=== PATIENT | female | born 1980 | race Two or more races ===

== ENCOUNTER 2017-08-19 22:36 | Emergency (ER) | payer OTHER ==
[~2017-08-19] VITALS: Ht 170.2 cm; Wt 70.3 kg
--- NOTE | 2017-08-19 22:36 | NUR ---
PT BB FRIEND IN WHEELCHAIR C/O LEFT KNEE AND LEFT ANKLE PAIN D/T CLOSING CAR DOOR ON LEG WITH 10/10 SHARP PAIN. VSS NAD. A/OX4 ABLE TO MAKE NEEDS KNOWN. WILL CONTINUE TO MONITOR FOR ANY CHANGES DURING THE SHIFT.
--- NOTE | 2017-08-19 22:37 | NUR ---
ER AT BEDSIDE FOR EVAL
[2017-08-19] MEDS ORDERED: HYDROCODONE/APAP 5/325MG 1 EACH TABLET ONE (23:43)
[2017-08-19] MEDS ORDERED: ONDANSETRON 4 MG TAB.RAPDIS ONE (23:44)
[2017-08-19] MEDS ORDERED: LORAZEPAM INJ 2 MG/ML VIAL ONE (23:46)
--- NOTE | 2017-08-19 23:51 | NUR ---
RADIOLOGY AT BEDSIDE FOR XR
[2017-08-20] MEDS ORDERED: LORAZEPAM INJ 2 MG/ML VIAL IM ONE
[2017-08-20] MEDS ORDERED: ONDANSETRON 4 MG TAB.RAPDIS PO ONE
[2017-08-20] MEDS ORDERED: HYDROCODONE/APAP 5/325MG 1 EACH TABLET PO ONE
[2017-08-20 01:13] VITALS: BP 126/79
== END 2017-08-20 01:14 | disposition home or self-care (01) ==
LOC: ER 22:39
DX: M79.672 Pain in left foot (principal); M79.662 Pain in left lower leg; D64.9 Anemia, unspecified; M04.1 Periodic fever syndromes; L93.0 Discoid lupus erythematosus; F17.200 Nicotine dependence, unspecified, uncomplicated; W23.0XXA Caught, crushed, jammed, or pinched between moving objects, initial encounter; Y93.89 Activity, other specified; Y92.89 Other specified places as the place of occurrence of the external cause; Y99.8 Other external cause status
CPT/HCPCS: 73590-TC; 73630-TC; A4606; J2060; Q0162; Z7610

== ENCOUNTER 2018-10-24 13:35 | Emergency (ER) | payer OTHER ==
[~2018-10-24] VITALS: Ht 160 cm; Wt 56.7 kg
--- NOTE | 2018-10-24 13:48 | NUR ---
"RUQ ABDOMINAL PAIN W/ N/V/D X 5 DAYS" PT AAOX4, -SOB, PT ON MONITOR, VSS, PENDING MD KWOK
[2018-10-24] MEDS ORDERED: MORPHINE SULFATE INJ 4 MG/ML DISP.SYRIN ONE (14:17)
[2018-10-24] MEDS ORDERED: ONDANSETRON HCL/PF 4 MG/2 ML VIAL ONE (14:17)
[2018-10-24 14:19] LABS: BASOPHILS # (AUTO) 0.1 /CMM (0.0-0.2); BASOPHILS % (AUTO) 0.8 % (0.0-2.0); EOSINOPHILS % (AUTO) 1.9 % (0.0-6.0); HEMATOCRIT 34 % (33-45); HEMOGLOBIN 10.8 g/dL (11.5-14.8); LYMPHOCYTES # (AUTO) 1.7 /CMM (0.8-4.8); LYMPHOCYTES % (AUTO) 20.2 % (20.0-44.0); MEAN CORPUSCULAR HGB CONC 32 g/dl (31.0-36.0); MEAN CORPUSCULAR VOLUME 74 fL (82-100); MONOCYTES # (AUTO) 0.6 /CMM (0.1-1.30); MONOCYTES % (AUTO) 7.3 % (2.0-12.0); NEUTROPHILS % (AUTO) 69.8 % (43.0-81.0); PLATELET COUNT (AUTO) 256 /CMM (150-450); RED BLOOD CELL COUNT(AUTO) 4.55 MIL/uL (4.0-5.2); WHITE BLOOD COUNT (AUTO) 8.6 K/uL (4.3-11.0)
[2018-10-24 14:25] LABS: CREATININE 0.8 mg/dL (0.6-1.3)
[2018-10-24] MEDS ORDERED: MORPHINE SULFATE INJ 2 MG/ML DISP.SYRIN IV ONE (14:30)
[2018-10-24] MEDS ORDERED: IV NS 0.9% 1,000 ML BAG IV ONE (14:30)
[2018-10-24] MEDS ORDERED: ONDANSETRON HCL/PF 4 MG/2 ML VIAL IVP ONE (14:30)
[2018-10-24 14:31] LABS: ALBUMIN 3.2 g/dL (3.4-5.0); BILIRUBIN,DIRECT 0.1 mg/dL (0.0-0.2); BILIRUBIN,TOTAL 0.2 mg/dL (0.2-1.0); TOTAL PROTEIN, SERUM 7.5 g/dL (6.4-8.2)
[2018-10-24 14:41] LABS: APPEARANCE,URINE Clear (CLEAR); BILIRUBIN,URINE Negative (NEGATIVE); BLOOD, URINE Moderate Ery/uL (NEGATIVE); COLOR,URINE Yellow (YELLOW); KETONES,URINE Negative (NEGATIVE); LEUKOCYTE ESTERASE ,URINE Negative (NEGATIVE); NITRITE, URINE Negative (NEGATIVE); PH,URINE 6.5 (5.0-8.0); PROTEIN,URINE Negative (NEGATIVE); UGLUCOSE Negative (NEGATIVE); UROBILINOGEN,URINE 0.2 EU/dL (0.2)
[2018-10-24 14:42] LABS: BACTERIA,URINE Few /HPF (None Seen); SQUAMOUS EPITHELIAL CELL,UR Few /HPF (None Seen)
--- NOTE | 2018-10-24 15:45 | NUR ---
Patient discharged to home in stable condition. Written and verbal after care instructions given. Patient verbalizes understanding of instruction. IV removed. Catheter intact and site benign. Pressure and 4x4 applied to site. No bleeding noted.
[2018-10-24 15:46] VITALS: BP 112/60
== END 2018-10-24 15:48 | disposition home or self-care (01) ==
LOC: ER 13:35
DX: R10.11 Right upper quadrant pain (principal); R11.2 Nausea with vomiting, unspecified; R19.7 Diarrhea, unspecified; D64.9 Anemia, unspecified; F17.200 Nicotine dependence, unspecified, uncomplicated
CPT/HCPCS: 36415; 76705; 80048; 80076; 81001; 83690; 84703; 85025; 96361; 96374; 96375; 99284; J2270; J2405; J7030; 81000-TC

== ENCOUNTER 2018-12-31 17:50 | Emergency (ER) | payer OTHER ==
[~2018-12-31] VITALS: Ht 165.1 cm; Wt 54.4 kg
--- NOTE | 2018-12-31 18:10 | NUR ---
PATIENT ARRIVED AT UNIT AMBULATORY. A/O X 4. WITH C/O NECK SPASM/SOB/VOMITING TODAY. PATIENT RESTING ON BED. CONNECTED TO MONITOR.
[2018-12-31] MEDS ORDERED: LORAZEPAM 1 MG TABLET PO ONE (18:30)
[2018-12-31 18:32] LABS: BASOPHILS # (AUTO) 0.1 /CMM (0.0-0.2); BASOPHILS % (AUTO) 0.4 % (0.0-2.0); EOSINOPHILS % (AUTO) 1.4 % (0.0-6.0); HEMATOCRIT 38 % (33-45); HEMOGLOBIN 12.3 g/dL (11.5-14.8); LYMPHOCYTES # (AUTO) 3.8 /CMM (0.8-4.8); LYMPHOCYTES % (AUTO) 30.6 % (20.0-44.0); MEAN CORPUSCULAR HGB CONC 32 g/dl (31.0-36.0); MEAN CORPUSCULAR VOLUME 74 fL (82-100); MONOCYTES # (AUTO) 0.8 /CMM (0.1-1.30); MONOCYTES % (AUTO) 6.1 % (2.0-12.0); NEUTROPHILS # (AUTO) 7.7 /CMM (1.8-8.9); NEUTROPHILS % (AUTO) 61.5 % (43.0-81.0); PLATELET COUNT (AUTO) 344 /CMM (150-450); RED BLOOD CELL COUNT(AUTO) 5.14 MIL/uL (4.0-5.2); WHITE BLOOD COUNT (AUTO) 12.4 K/uL (4.3-11.0)
--- NOTE | 2018-12-31 18:57 | NUR ---
PATIENT WITH POSITIVE URINE RESULT. ORDER FOR ATIVAN 1MG PO VERIFIED WITH DEMETRIUS BOX AND GAVE OK TO GIVE MEDICATION.
[2018-12-31] MEDS ORDERED: LORAZEPAM 1 MG TABLET ONE (18:59)
[2018-12-31 19:10] LABS: CALCIUM, SERUM 9.5 mg/dL (8.5-10.1); CREATININE 0.7 mg/dL (0.6-1.3); POTASSIUM 3.9 mmol/L (3.5-5.1)
--- NOTE | 2018-12-31 19:19 | NUR ---
PATIENT RESTING ON BED, TALKING ON THE PHONE WITH FAMILY MEMBER. NO ACUTE DISTRESS AT THIS TIME. REPORT GIVEN TO YIMI DARLING FOR FRANCISCO
--- NOTE | 2018-12-31 19:22 | NUR ---
TECH AT BEDSIDE FOR US.
--- NOTE | 2018-12-31 20:23 | NUR ---
Patient discharged to home in stable condition. Written and verbal after care instructions given. Patient verbalizes understanding of instruction.
[2018-12-31 20:24] VITALS: BP 131/68
== END 2018-12-31 20:25 | disposition home or self-care (01) ==
LOC: ER 17:54
DX: O99.341 Other mental disorders complicating pregnancy, first trimester (principal); F41.9 Anxiety disorder, unspecified; O99.011 Anemia complicating pregnancy, first trimester; O99.331 Smoking (tobacco) complicating pregnancy, first trimester; Z3A.00 Weeks of gestation of pregnancy not specified
CPT/HCPCS: 36415; 76805-TC; 80048-TC; 84702-TC; 84703-TC; 85025-TC

== ENCOUNTER 2019-02-26 14:03 | Emergency (ER) | payer OTHER ==
[~2019-02-26] VITALS: Ht 165.1 cm; Wt 59.0 kg
--- NOTE | 2019-02-26 14:34 | NUR ---
BIB BF FROM HOME, C/O ABDOMINAL PAIN x 2 DAYS, SPOTTING THIS MORNING, 14WEEKS , A0, TOOK COLCHICINE 0.12MG AND TYLENOL 500MG THIS MORNING AT 9AM. TO ER BED 16, HOOKED TO MONITOR, CHANGED TO HOSP GOWN, PROVIDED W WARM BLANKET, AWAITING MD KWOK.
--- NOTE | 2019-02-26 14:35 | NUR ---
Fidelia trejo in [facility] - 02/26/19 at [address] PARR AT BEDSIDE
--- NOTE | 2019-02-26 14:43 | NUR ---
Fidelia trejo in ED - 02/26/19 at 1444 by MARLEN Patient discharged to home in stable condition. Written and verbal after care instructions given. Patient verbalizes understanding of instruction.
--- NOTE | 2019-02-26 14:50 | NUR ---
ISAURO LEWIS AT BEDSIDE
[2019-02-26] MEDS ORDERED: IV NS 0.9% 1,000 ML BAG IV ONE (15:00)
[2019-02-26] MEDS ORDERED: MORPHINE SULFATE INJ 2 MG/ML DISP.SYRIN ONE (15:12)
--- NOTE | 2019-02-26 15:19 | NUR ---
ONGOING MARY LOU
[2019-02-26 15:20] LABS: BASOPHILS # (AUTO) 0.1 /CMM (0.0-0.2); BASOPHILS % (AUTO) 0.6 % (0.0-2.0); EOSINOPHILS % (AUTO) 1.1 % (0.0-6.0); HEMATOCRIT 35 % (33-45); HEMOGLOBIN 11.5 g/dL (11.5-14.8); LYMPHOCYTES # (AUTO) 1.7 /CMM (0.8-4.8); LYMPHOCYTES % (AUTO) 15.2 % (20.0-44.0); MEAN CORPUSCULAR HGB CONC 33 g/dl (31.0-36.0); MEAN CORPUSCULAR VOLUME 74 fL (82-100); MONOCYTES # (AUTO) 0.7 /CMM (0.1-1.30); MONOCYTES % (AUTO) 6.7 % (2.0-12.0); NEUTROPHILS # (AUTO) 8.4 /CMM (1.8-8.9); NEUTROPHILS % (AUTO) 76.4 % (43.0-81.0); PLATELET COUNT (AUTO) 215 /CMM (150-450)
[2019-02-26] MEDS ORDERED: MORPHINE SULFATE INJ 2 MG/ML DISP.SYRIN IV ONE (15:30)
[2019-02-26 15:32] LABS: CALCIUM, SERUM 9.2 mg/dL (8.5-10.1); CREATININE 0.7 mg/dL (0.6-1.3)
[2019-02-26 16:07] LABS: ALBUMIN 3.4 g/dL (3.4-5.0); BILIRUBIN,TOTAL 0.2 mg/dL (0.2-1.0); TOTAL PROTEIN, SERUM 7.9 g/dL (6.4-8.2)
--- NOTE | 2019-02-26 16:34 | NUR ---
Fidelia trejo in [facility] - 02/26/19 at 1711 by NILES Jose Starkdaughter)
--- NOTE | 2019-02-26 17:20 | NUR ---
IV removed. Catheter intact and site benign. Pressure and 4x4 applied to site. No bleeding noted.Patient discharged to home in stable condition. Written and verbal after care instructions given. Patient verbalizes understanding of instruction.
[2019-02-26 17:21] VITALS: BP 106/64
== END 2019-02-26 17:22 | disposition home or self-care (01) ==
LOC: ER 14:03
DX: O46.8X1 Other antepartum hemorrhage, first trimester (principal); O99.011 Anemia complicating pregnancy, first trimester; O99.341 Other mental disorders complicating pregnancy, first trimester; F41.9 Anxiety disorder, unspecified; O99.331 Smoking (tobacco) complicating pregnancy, first trimester; Z3A.13 13 weeks gestation of pregnancy
CPT/HCPCS: 36415; 76805; 80048; 80076; 84702; 85025; 85730; 96374; 99284; J2270; J7030

== ENCOUNTER 2020-06-01 21:26 | Emergency (ER) | payer OTHER ==
[~2020-06-01] VITALS: Ht 162.6 cm; Wt 55.8 kg
--- NOTE | 2020-06-01 21:38 | NUR ---
pt bibra c/o ALOC. Upon assessment pt aaox3, but having difficulty answering. Pt appears to be having spasms and clenching her jaw. Pt states "i cant control my body". Pt skin warm, dry, and intact. Pt attached to monitor and pox. Pt given blanket and call light within reach. Willcontinue to monitor.
--- NOTE | 2020-06-01 21:49 | NUR ---
DR ZARATE AT BED SIDE
--- NOTE | 2020-06-01 22:17 | NUR ---
sky, sister [phone]
[2020-06-01] MEDS ORDERED: LORA-259 PO (22:18)
[2020-06-01] MEDS ORDERED: LORAZEPAM 1 MG TABLET ONE (22:20)
[2020-06-01] MEDS ORDERED: LORAZEPAM 1 MG TABLET PO ONE (22:30)
--- NOTE | 2020-06-01 22:30 | NUR ---
Patient discharged to home in stable condition. Written and verbal after care instructions given. Patient verbalizes understanding of instruction. Pt ambulatory with a steady gait. pt picking her up
[2020-06-01 22:50] VITALS: BP 130/90
== END 2020-06-01 22:27 | disposition home or self-care (01) ==
LOC: ER 21:28
DX: F41.9 Anxiety disorder, unspecified (principal); F17.200 Nicotine dependence, unspecified, uncomplicated; Z79.899 Other long term (current) drug therapy

== ENCOUNTER 2020-12-15 21:18 | Emergency (ER) | payer OTHER ==
[~2020-12-15] VITALS: Ht 162.6 cm; Wt 55.8 kg
[~2020-12-15 21:18] MED LIST: LORA-259 PO
[2020-12-15 22:49] LABS: BASOPHILS # (AUTO) 0.1 K/uL (0.0-0.2); BASOPHILS % (AUTO) 0.8 % (0.0-2.0); EOSINOPHILS % (AUTO) 1.6 % (0.0-6.0); HEMATOCRIT 37 % (33-45); HEMOGLOBIN 11.5 g/dL (11.5-14.8); LYMPHOCYTES # (AUTO) 2.5 K/uL (0.8-4.8); LYMPHOCYTES % (AUTO) 19.3 % (20.0-44.0); MEAN CORPUSCULAR HGB CONC 32 g/dl (31.0-36.0); MEAN CORPUSCULAR VOLUME 73 fL (82-100); MONOCYTES # (AUTO) 0.8 K/uL (0.1-1.30); MONOCYTES % (AUTO) 6.3 % (2.0-12.0); NEUTROPHILS # (AUTO) 9.2 K/uL (1.8-8.9); PLATELET COUNT (AUTO) 331 K/uL (150-450); WHITE BLOOD COUNT (AUTO) 12.8 K/uL (4.3-11.0)
[2020-12-15 22:58] LABS: CALCIUM, SERUM 8.5 mg/dL (8.5-10.1); CARBON DIOXIDE 26 mmol/L (21-32); CHLORIDE 106 mmol/L (98-107); GLUCOSE 95 mg/dL (74-106); POTASSIUM 4.2 mmol/L (3.5-5.1); SODIUM SERUM 139 mmol/L (136-145); UREA NITROGEN, BLOOD 10 mg/dL (7-18)
[2020-12-15 23:04] LABS: ALANINE AMINOTRANSFERASE 19 U/L (12-78); ALBUMIN 3.6 g/dL (3.4-5.0); ALKALINE PHOSPHATASE 51 U/L (46-116); ASPARTATE AMINOTRANSFERASE 16 U/L (15-37); BILIRUBIN,DIRECT 0.1 mg/dL (0.0-0.2); BILIRUBIN,TOTAL 0.2 mg/dL (0.2-1.0); TOTAL PROTEIN, SERUM 7.8 g/dL (6.4-8.2)
[2020-12-15 23:14] LABS: BAND % (MANUAL) 4 % (0.0-5.0); LYMPHOCYTES % (MANUAL) 14 % (16-48); NEUTROPHILS % (MANUAL) 82 (42-76)
[2020-12-15] MEDS ORDERED: MORPHINE SULFATE INJ 4 MG/ML DISP.SYRIN ONE (23:45)
[2020-12-15] MEDS ORDERED: ONDANSETRON 4 MG TAB.RAPDIS ONE (23:45)
[2020-12-16 00:22] LABS: BILIRUBIN,URINE Negative (NEGATIVE); COLOR,URINE YELLOW (YELLOW); LEUKOCYTE ESTERASE ,URINE Negative (NEGATIVE); NITRITE, URINE Negative (NEGATIVE); PROTEIN,URINE Negative (NEGATIVE); UGLUCOSE Negative (NEGATIVE); UROBILINOGEN,URINE 0.2 EU/dL (0.2)
[2020-12-16 00:44] LABS: BACTERIA,URINE Few /HPF (None Seen); RBC,URINE 21-50 /HPF (0-2); SQUAMOUS EPITHELIAL CELL,UR Few /HPF (None Seen)
[2020-12-16 03:04] VITALS: BP 121/75
== END 2020-12-16 01:17 | disposition home or self-care (01) ==
LOC: ER 21:20
DX: M79.10 Myalgia, unspecified site (principal); R07.89 Other chest pain; M32.9 Systemic lupus erythematosus, unspecified; M04.1 Periodic fever syndromes; F41.9 Anxiety disorder, unspecified; Z79.899 Other long term (current) drug therapy; Z20.822 Contact with and (suspected) exposure to COVID-19
CPT/HCPCS: 36415; 71045; 80048; 80076; 81001; 83605; 84484; 84702; 85007; 85025; 85378; 85652; 87040 ×2; 87426; 93005; 99285; C9803 ×2; U0003; J2270; Q0162

== ENCOUNTER 2021-07-30 13:20 | Emergency (ER) | payer OTHER ==
[~2021-07-30] VITALS: Ht 165.1 cm; Wt 55.8 kg
--- NOTE | 2021-07-30 14:01 | NUR ---
BIBSELF C/O FEVER WITH ABD PAIN & FLANK PAIN X 3 DAYS. PT AAOX4, VSS, PT SEEN & EVAL'D BY DR. COLE. WILL CONT TO MONITOR.
--- NOTE | 2021-07-30 14:03 | NUR ---
BLOOD DRAWN, URINE, SWAB FOR COVID19, NOVEL [place] SAMPLE SENT TO LAB
[2021-07-30 14:15] LABS: BASOPHILS % (AUTO) 0.3 % (0.0-2.0); EOSINOPHILS % (AUTO) 0.7 % (0.0-6.0); HEMATOCRIT 34 % (33-45); LYMPHOCYTES # (AUTO) 0.6 K/uL (0.8-4.8); LYMPHOCYTES % (AUTO) 7.7 % (20.0-44.0); MEAN CORPUSCULAR HGB CONC 32 g/dl (31.0-36.0); MEAN CORPUSCULAR VOLUME 72 fL (82-100); MONOCYTES # (AUTO) 0.5 K/uL (0.1-1.30); MONOCYTES % (AUTO) 6.7 % (2.0-12.0); NEUTROPHILS # (AUTO) 6.8 K/uL (1.8-8.9); NEUTROPHILS % (AUTO) 84.6 % (43.0-81.0); PLATELET COUNT (AUTO) 267 K/uL (150-450); RED BLOOD CELL COUNT(AUTO) 4.73 MIL/uL (4.0-5.2)
[2021-07-30] MEDS ORDERED: MORPHINE SULFATE INJ 2 MG/ML DISP.SYRIN ONE (14:25)
[2021-07-30] MEDS ORDERED: ONDANSETRON HCL/PF 4 MG/2 ML VIAL ONE (14:25)
[2021-07-30 14:26] LABS: CALCIUM, SERUM 8.6 mg/dL (8.5-10.1); CREATININE 0.9 mg/dL (0.6-1.3); POTASSIUM 3.7 mmol/L (3.5-5.1)
[2021-07-30] MEDS ORDERED: MORPHINE SULFATE INJ 2 MG/ML DISP.SYRIN IV ONE (14:30)
[2021-07-30] MEDS ORDERED: IV NS 0.9% 1,000 ML BAG IV ONE (14:30)
[2021-07-30] MEDS ORDERED: ONDANSETRON HCL/PF 4 MG/2 ML VIAL IVP ONE (14:30)
[2021-07-30] MEDS ORDERED: KETOROLAC TROMETHAMINE INJ 30 MG/ML VIAL IV ONE (14:30)
[2021-07-30 14:32] LABS: ALBUMIN 3.6 g/dL (3.4-5.0); BILIRUBIN,TOTAL 0.1 mg/dL (0.2-1.0)
[2021-07-30 14:48] LABS: BILIRUBIN,URINE NEGATIVE (NEGATIVE); COLOR,URINE YELLOW (YELLOW); LEUKOCYTE ESTERASE ,URINE NEGATIVE (NEGATIVE); NITRITE, URINE NEGATIVE (NEGATIVE); PH,URINE 5.5 (5.0-8.0); PROTEIN,URINE NEGATIVE (NEGATIVE); UGLUCOSE NEGATIVE (NEGATIVE); UROBILINOGEN,URINE 0.2 EU/dL (0.2)
[2021-07-30] MEDS ORDERED: KETOROLAC TROMETHAMINE INJ 30 MG/ML VIAL ONE (14:56)
--- NOTE | 2021-07-30 15:13 | NUR ---
PATIENT WENT FOR CT ABDO. AND PELVIS VIA [facility]
--- NOTE | 2021-07-30 15:25 | NUR ---
PATIENT BACK FROM CT
--- NOTE | 2021-07-30 15:34 | NUR ---
influenza swab collected and sent to lab.
[2021-07-30 15:46] LABS: BACTERIA,URINE 1+ /HPF (None Seen); RBC,URINE 51-80 /HPF (0-2); WBC,URINE 0-2 /HPF (0-3)
[2021-07-30] MEDS ORDERED: CEPH750C9 PO (17:55)
[2021-07-30] MEDS ORDERED: IBUP-1953 PO (17:55)
[2021-07-30 19:45] VITALS: BP 118/73
== END 2021-07-30 19:46 | disposition home or self-care (01) ==
LOC: ER 13:32
DX: N39.0 Urinary tract infection, site not specified (principal); R31.9 Hematuria, unspecified; Z20.822 Contact with and (suspected) exposure to COVID-19
CPT/HCPCS: 36415; 74176; 80048; 80076; 81001; 83605; 83690; 84703; 85025; 87040 ×2; 87086; 87426; 87804; 96361; 96374; 96375; 99284; C9803 ×2; J1885; J2270; J2405; J7030; U0003

== ENCOUNTER 2023-03-17 02:13 | Emergency (ER) | payer OTHER ==
[~2023-03-17] VITALS: Ht 165.1 cm; Wt 59.4 kg
[~2023-03-17 02:13] MED LIST changes: +CEPH750C9 PO; +IBUP-1953 PO
[2023-03-17 02:32] VITALS: TEMP 98.1
[2023-03-17 02:58] LABS: HEMATOCRIT 32 % (33-45)
[2023-03-17] MEDS ORDERED: ONDANSETRON HCL/PF 4 MG/2 ML VIAL IVP ONE (03:00)
[2023-03-17] MEDS ORDERED: MORPHINE SULFATE INJ 2 MG/ML DISP.SYRIN IV ONE (03:00)
[2023-03-17 03:03] LABS: BASOPHILS % (AUTO) 0.7 % (0.0-2.0); EOSINOPHILS # (AUTO) 0.2 K/uL (0.0-0.7); EOSINOPHILS % (AUTO) 2.6 % (0.0-6.0); HEMOGLOBIN 10.2 g/dL (11.5-14.8); LYMPHOCYTES % (AUTO) 41.3 % (20.0-44.0); MEAN CORPUSCULAR HEMOGLOBIN 24 PG (26.0-33.0); MEAN CORPUSCULAR HGB CONC 32 g/dl (31.0-36.0); MEAN CORPUSCULAR VOLUME 73 fL (82-100); MONOCYTES # (AUTO) 0.5 K/uL (0.1-1.30); MONOCYTES % (AUTO) 6.6 % (2.0-12.0); NEUTROPHILS # (AUTO) 3.5 K/uL (1.8-8.9); NEUTROPHILS % (AUTO) 48.8 % (43.0-81.0); PLATELET COUNT (AUTO) 233 K/uL (150-450); RED BLOOD CELL COUNT(AUTO) 4.31 MIL/uL (4.0-5.2); RED CELL DISTRIBUTION WIDTH 15.8 % (11.5-15.0); WHITE BLOOD COUNT (AUTO) 7.2 K/uL (4.3-11.0)
[2023-03-17 03:03] LABS: PREGNANCY TEST URINE QUAL NEGATIVE (NEGATIVE)
[2023-03-17 03:04] LABS: ADD URINE CULTURE NO; APPEARANCE,URINE SLIGHTLY CLOUDY (CLEAR); BACTERIA,URINE Rare /HPF (None Seen); BILIRUBIN,URINE NEGATIVE (NEGATIVE); BLOOD, URINE 2+ Ery/uL (NEGATIVE); COLOR,URINE YELLOW (YELLOW); KETONES,URINE NEGATIVE (NEGATIVE); LEUKOCYTE ESTERASE ,URINE NEGATIVE (NEGATIVE); NITRITE, URINE NEGATIVE (NEGATIVE); PH,URINE 6.5 (5.0-8.0); PROTEIN,URINE NEGATIVE (NEGATIVE); UGLUCOSE NEGATIVE (NEGATIVE); UROBILINOGEN,URINE 0.2 EU/dL (0.2)
[2023-03-17 03:04] LABS: CALCIUM, SERUM 9.2 mg/dL (8.5-10.1); CREATININE 0.7 mg/dL (0.6-1.3); POTASSIUM 3.4 mmol/L (3.5-5.1)
[2023-03-17 03:05] LABS: SQUAMOUS EPITHELIAL CELL,UR Few /HPF (None Seen)
[2023-03-17 03:11] LABS: ALBUMIN 3.4 g/dL (3.4-5.0); BILIRUBIN,DIRECT 0.1 mg/dL (0.0-0.2); BILIRUBIN,TOTAL 0.2 mg/dL (0.2-1.0); TOTAL PROTEIN, SERUM 7.8 g/dL (6.4-8.2)
[2023-03-17] MEDS ORDERED: TRAM50TA2 PO (06:30)
[2023-03-17] MEDS ORDERED: HYDROMORPHONE 1 MG/1 ML DISP.SYRIN IV ONE (06:30)
[2023-03-17] MEDS ORDERED: HYDROMORPHONE 1 MG/1 ML DISP.SYRIN ONE (06:35)
[2023-03-17] MEDS ORDERED: ONDA4TAB5 PO (07:24)
[2023-03-17] MEDS ORDERED: POLY17PO4 PO (07:24)
[2023-03-17] MEDS ORDERED: FAMO-131 PO (07:24)
[2023-03-17 07:32] VITALS: BP 112/82; O2SAT 99
== END 2023-03-17 07:33 | disposition home or self-care (01) ==
LOC: ER 02:27
DX: R10.11 Right upper quadrant pain (principal); R10.31 Right lower quadrant pain; Z87.39 Personal history of other diseases of the musculoskeletal system and connective tissue
CPT/HCPCS: 99285; 74177; 96374; 96375; 85025; 80048; 83690; 80076; 84703; 81001; 36415; J2405; J2270; J1170; J7050; Q9967

== ENCOUNTER 2023-12-29 10:22 | Emergency (ER) | payer OTHER ==
[~2023-12-29] VITALS: Ht 165.1 cm; Wt 60.8 kg
[~2023-12-29 10:22] MED LIST changes: +FAMO-131 PO; +ONDA4TAB5 PO; +POLY17PO4 PO; +TRAM50TA2 PO
[2023-12-29] MEDS ORDERED: ONDANSETRON HCL/PF 4 MG/2 ML VIAL ONE (11:03)
[2023-12-29 11:17] LABS: BASOPHILS % (AUTO) 0.5 % (0.0-2.0); EOSINOPHILS # (AUTO) 0.1 K/uL (0.0-0.7); EOSINOPHILS % (AUTO) 1.2 % (0.0-6.0); HEMATOCRIT 35 % (33-45); HEMOGLOBIN 11.2 g/dL (11.5-14.8); LYMPHOCYTES % (AUTO) 19.8 % (20.0-44.0); MEAN CORPUSCULAR HEMOGLOBIN 22 PG (26.0-33.0); MEAN CORPUSCULAR HGB CONC 32 g/dl (31.0-36.0); MEAN CORPUSCULAR VOLUME 70 fL (82-100); MONOCYTES # (AUTO) 0.8 K/uL (0.1-1.30); NEUTROPHILS # (AUTO) 7.1 K/uL (1.8-8.9); NEUTROPHILS % (AUTO) 70.5 % (43.0-81.0); PLATELET COUNT (AUTO) 334 K/uL (150-450); RED BLOOD CELL COUNT(AUTO) 4.99 MIL/uL (4.0-5.2); RED CELL DISTRIBUTION WIDTH 16.5 % (11.5-15.0)
[2023-12-29] MEDS: IV NS 0.9% 1,000 ML BAG IV ONE (11:21)
[2023-12-29] MEDS: ONDANSETRON HCL/PF 4 MG/2 ML VIAL IVP ONE (11:22)
[2023-12-29 11:26] LABS: APPEARANCE,URINE CLEAR (CLEAR); BILIRUBIN,URINE NEGATIVE (NEGATIVE); BLOOD, URINE 2+ Ery/uL (NEGATIVE); COLOR,URINE YELLOW (YELLOW); KETONES,URINE NEGATIVE (NEGATIVE); LEUKOCYTE ESTERASE ,URINE NEGATIVE (NEGATIVE); NITRITE, URINE NEGATIVE (NEGATIVE); PROTEIN,URINE NEGATIVE (NEGATIVE); UGLUCOSE NEGATIVE (NEGATIVE); UROBILINOGEN,URINE 0.2 EU/dL (0.2)
[2023-12-29 11:27] LABS: PREGNANCY TEST URINE QUAL NEGATIVE (NEGATIVE)
[2023-12-29 11:39] LABS: CALCIUM, SERUM 9.4 mg/dL (8.5-10.1); CARBON DIOXIDE 28 mmol/L (21-32); CHLORIDE 106 mmol/L (98-107); CREATININE 0.8 mg/dL (0.6-1.3); GLUCOSE 93 mg/dL (74-106); POTASSIUM 4.8 mmol/L (3.5-5.1); SODIUM SERUM 143 mmol/L (136-145); UREA NITROGEN, BLOOD 8 mg/dL (7-18)
[2023-12-29 11:51] LABS: ALANINE AMINOTRANSFERASE 19 U/L (12-78); ALBUMIN 3.5 g/dL (3.4-5.0); ALKALINE PHOSPHATASE 50 U/L (46-116); ASPARTATE AMINOTRANSFERASE 17 U/L (15-37); BILIRUBIN,DIRECT 0.1 mg/dL (0.0-0.2); BILIRUBIN,TOTAL 0.2 mg/dL (0.2-1.0); LIPASE 79 U/L (16-77); TOTAL PROTEIN, SERUM 7.9 g/dL (6.4-8.2)
[2023-12-29 11:51] LABS: ADD URINE CULTURE NO; BACTERIA,URINE 1+ /HPF (None Seen); RBC,URINE 21-50 /HPF (0-2)
[2023-12-29] MEDS ORDERED: CIPR500T5 PO (12:32)
[2023-12-29 12:54] VITALS: BP 116/68; TEMP 97.7; O2SAT 100
== END 2023-12-29 12:55 | disposition home or self-care (01) ==
LOC: ER 10:30
DX: S09.90XA Unspecified injury of head, initial encounter (principal); N39.0 Urinary tract infection, site not specified; R10.9 Unspecified abdominal pain; R11.2 Nausea with vomiting, unspecified; R19.7 Diarrhea, unspecified; R55 Syncope and collapse; F41.1 Generalized anxiety disorder; F41.0 Panic disorder [episodic paroxysmal anxiety]; R06.4 Hyperventilation; F17.200 Nicotine dependence, unspecified, uncomplicated; X58.XXXA Exposure to other specified factors, initial encounter; Y93.89 Activity, other specified; Y92.89 Other specified places as the place of occurrence of the external cause; Y99.8 Other external cause status
CPT/HCPCS: 99285; 70450; 96374; 71045; 96361; 93005; 74176; 85025; 80048; 83690; 80076; 84703; 81001; 36415; 84484; 82962; J2405; J7030

== ENCOUNTER 2024-04-19 20:25 | Emergency (ER) | payer MEDICAID ==
[~2024-04-19] VITALS: Ht 165.1 cm; Wt 60.8 kg
[~2024-04-19 20:25] MED LIST changes: +CIPR500T5 PO
[2024-04-19] MEDS ORDERED: ONDANSETRON HCL/PF 4 MG/2 ML VIAL ONE (22:44)
[2024-04-19] MEDS ORDERED: MORPHINE SULFATE INJ 2 MG/ML DISP.SYRIN ONE (22:44)
[2024-04-19] MEDS: IV NS 0.9% 500 ML BAG IV ONE (22:55)
[2024-04-19 22:57] LABS: BASOPHILS # (AUTO) 0.1 K/uL (0.0-0.2); BASOPHILS % (AUTO) 0.7 % (0.0-2.0); EOSINOPHILS # (AUTO) 0.3 K/uL (0.0-0.7); EOSINOPHILS % (AUTO) 3.1 % (0.0-6.0); HEMATOCRIT 34 % (33-45); HEMOGLOBIN 11.4 g/dL (11.5-14.8); LYMPHOCYTES # (AUTO) 3.2 K/uL (0.8-4.8); LYMPHOCYTES % (AUTO) 34.2 % (20.0-44.0); MEAN CORPUSCULAR HEMOGLOBIN 23 PG (26.0-33.0); MEAN CORPUSCULAR HGB CONC 33 g/dl (31.0-36.0); MEAN CORPUSCULAR VOLUME 70 fL (82-100); MONOCYTES # (AUTO) 0.6 K/uL (0.1-1.30); MONOCYTES % (AUTO) 6.6 % (2.0-12.0); NEUTROPHILS # (AUTO) 5.2 K/uL (1.8-8.9); NEUTROPHILS % (AUTO) 55.4 % (43.0-81.0); PLATELET COUNT (AUTO) 268 K/uL (150-450); RED BLOOD CELL COUNT(AUTO) 4.91 MIL/uL (4.0-5.2); RED CELL DISTRIBUTION WIDTH 16.4 % (11.5-15.0); WHITE BLOOD COUNT (AUTO) 9.4 K/uL (4.3-11.0)
[2024-04-19] MEDS: ONDANSETRON HCL/PF 4 MG/2 ML VIAL IVP ONE (23:00)
[2024-04-19] MEDS: MORPHINE SULFATE INJ 2 MG/ML DISP.SYRIN IV ONE (23:01)
[2024-04-19 23:05] LABS: APPEARANCE,URINE SLIGHTLY CLOUDY (CLEAR); BILIRUBIN,URINE NEGATIVE (NEGATIVE); BLOOD, URINE 3+ Ery/uL (NEGATIVE); COLOR,URINE YELLOW (YELLOW); KETONES,URINE NEGATIVE (NEGATIVE); LEUKOCYTE ESTERASE ,URINE NEGATIVE (NEGATIVE); NITRITE, URINE NEGATIVE (NEGATIVE); PROTEIN,URINE NEGATIVE (NEGATIVE); UGLUCOSE NEGATIVE (NEGATIVE); UROBILINOGEN,URINE 0.2 EU/dL (0.2)
[2024-04-19 23:06] LABS: PREGNANCY TEST URINE QUAL NEGATIVE (NEGATIVE)
[2024-04-19 23:10] LABS: PARTIAL THROMBOPLASTIN TIME 29.9 SEC (24.3-34.3); PROTHROMBIN TIME 10.6 SECS (9.2-11.1)
[2024-04-19 23:13] LABS: BILIRUBIN,DIRECT 0.1 mg/dL (0.0-0.2); BILIRUBIN,TOTAL 0.2 mg/dL (0.2-1.0); CALCIUM, SERUM 9.2 mg/dL (8.5-10.1); CREATININE 0.9 mg/dL (0.6-1.3); POTASSIUM 4.4 mmol/L (3.5-5.1); TOTAL PROTEIN, SERUM 8.2 g/dL (6.4-8.2)
[2024-04-19 23:22] LABS: BACTERIA,URINE Few /HPF (None Seen); RBC,URINE 81-100 /HPF (0-2); SQUAMOUS EPITHELIAL CELL,UR Moderate /HPF (None Seen)
[2024-04-19 23:24] LABS: ADD URINE CULTURE NO
[2024-04-20 01:03] VITALS: BP 127/84; TEMP 98; O2SAT 98
== END 2024-04-20 01:03 | disposition home or self-care (01) ==
LOC: ER 20:28
DX: N83.202 Unspecified ovarian cyst, left side (principal); F17.200 Nicotine dependence, unspecified, uncomplicated; R14.0 Abdominal distension (gaseous); R30.0 Dysuria; Z79.899 Other long term (current) drug therapy; Z86.59 Personal history of other mental and behavioral disorders
CPT/HCPCS: 99285; 74176; 96374; 76856; 71045; 96375; 85025; 80048; 83690; 80076; 84703; 81001; 36415; 85730; J2405; J7030; J2270

== ENCOUNTER 2024-08-16 08:32 | Emergency (ER) | payer MEDICAID ==
[~2024-08-16] VITALS: Ht 162.6 cm; Wt 67.6 kg
[2024-08-16] MEDS ORDERED: NITROFURANTOIN/MONOHYDRATE MACROCRYSTALS 100 MG CAPSULE ONE (08:58)
[2024-08-16] MEDS ORDERED: IBUPROFEN 600 MG TABLET ONE (08:58)
[2024-08-16] MEDS ORDERED: ONDANSETRON 4 MG TAB.RAPDIS ONE (08:58)
[2024-08-16] MEDS ORDERED: NITR100C6 PO (09:00)
[2024-08-16] MEDS: ONDANSETRON 4 MG TAB.RAPDIS SL ONE (09:02)
[2024-08-16] MEDS: IBUPROFEN 600 MG TABLET PO ONE (09:02)
[2024-08-16] MEDS: NITROFURANTOIN/MONOHYDRATE MACROCRYSTALS 100 MG CAPSULE PO ONE (09:02)
[2024-08-16 09:09] LABS: APPEARANCE,URINE CLEAR (CLEAR); BILIRUBIN,URINE Negative (NEGATIVE); BLOOD, URINE Large Ery/uL (NEGATIVE); COLOR,URINE YELLOW (YELLOW); KETONES,URINE Negative (NEGATIVE); LEUKOCYTE ESTERASE ,URINE Negative (NEGATIVE); PH,URINE 5.5 (5.0-8.0); PROTEIN,URINE Negative (NEGATIVE); UGLUCOSE Negative (NEGATIVE); UROBILINOGEN,URINE 0.2 EU/dL (0.2)
[2024-08-16 09:12] LABS: PREGNANCY TEST URINE QUAL NEGATIVE (NEGATIVE)
[2024-08-16 09:14] LABS: NITRITE, URINE NEGATIVE (NEGATIVE)
[2024-08-16 09:29] LABS: ADD URINE CULTURE NO; BACTERIA,URINE Rare /HPF (None Seen)
[2024-08-16 09:40] VITALS: BP 114/70; TEMP 99.5; O2SAT 99
== END 2024-08-16 10:19 | disposition home or self-care (01) ==
LOC: ER 08:35
DX: N39.0 Urinary tract infection, site not specified (principal); F17.200 Nicotine dependence, unspecified, uncomplicated; Z79.899 Other long term (current) drug therapy
CPT/HCPCS: 99284; 87086; 84703; 81001; Q0162